=== PATIENT | male | born 1990 | race African-American/Black ===

== ENCOUNTER 2020-06-09 17:03 | Emergency (ER) | payer OTHER ==
[~2020-06-09] VITALS: Ht 177.8 cm; Wt 98.0 kg
[2020-06-09 17:04] VITALS: BP 164/75
[2020-06-09] MEDS ORDERED: IBUP200T45 PO (17:07)
[2020-06-09] MEDS ORDERED: KETOROLAC 30 MG/ML 1ML VIAL IM ONE (17:45)
[2020-06-09] MEDS ORDERED: KETO10TAB PO (17:47)
[2020-06-09] MEDS ORDERED: CYCL-707 PO (17:47)
== END 2020-06-09 17:56 | disposition home or self-care (01) ==
LOC: M ED 17:03
DX: M62.830 Muscle spasm of back (principal)
CPT/HCPCS: 96372; 99282; J1885

== ENCOUNTER 2020-11-24 12:03 | Emergency (ER) | payer OTHER ==
[~2020-11-24] VITALS: Ht 177.8 cm; Wt 83.0 kg
[2020-11-24 12:03] VITALS: BP 160/76
[~2020-11-24 12:03] MED LIST: CYCL-707 PO; IBUP200T45 PO; KETO10TAB PO
[2020-11-24] MEDS ORDERED: ACET-683 PO (12:19)
--- OUTSIDE RECORDS SUMMARY | 2020-11-24 13:50 | CCD ---
Author Author [facility] Organization [facility] Address Unknown Phone Unavailable Support Name Relationship Address Phone [facility] Next Of Kin [address] [place] [address] Unavailable Re-disclosure Warning The records that you are about to access may contain information from federally-assisted alcohol or drug abuse programs. If such information is present, then the following federally mandated warning applies: This information has been disclosed to you from records protected by federal confidentiality rules (42 CFR part 2). The federal rules prohibit you from making any further disclosure of this information unless further disclosure is expressly permitted by the written consent of the person to whom it pertains or as otherwise permitted by 42 CFR part 2. A general authorization for the release of medical or other information is NOT sufficient for this purpose. The Federal rules restrict any use of the information to criminally investigate or prosecute any alcohol or drug abuse patient.The records that you are about to access may contain highly sensitive health information, the redisclosure of which is protected by Article 27-F of the [facility] Public Health law. If you continue you may have access to information: Regarding HIV / AIDS; Provided by facilities licensed or operated by the [facility] Office of Mental Health; or Provided by the [facility] Office for People With Developmental Disabilities. If such information is present, then the following [facility] mandated warning applies: This information has been disclosed to you from confidential records which are protected by state law. State law prohibits you from making any further disclosure of this information without the specific written consent of the person to whom it pertains, or as otherwise permitted by law. Any unauthorized further disclosure in violation of state law may result in a fine or mcfp sentence or both. A general authorization for the release of medical or other information is NOT sufficient authorization for further disc losure. Insurance Providers Payer name Policy type / Coverage type Policy ID Covered republican ID Covered republican's relationship to hassan Policy Hassan Plan Information [facility] ACTIVE DUTY [id number]
--- OUTSIDE RECORDS SUMMARY | 2020-11-24 13:57 | CCD ---
Author Author [facility] Organization [facility] Address Unknown Phone Unavailable Support Name Relationship Address Phone ADEEL YANG Next Of Kin [address] [address] [facility] Next [place] [address] Unavailable Re-disclosure Warning The records that you [...] is protected by Article 27-F of the [facility] Public Health law. If you continue you may have access to information: Regarding HIV / AIDS; Provided by facilities licensed or operated by the [facility] Office of Mental Health; or Provided by the [facility] Office for People With Developmental Disabilities. If such information is present, then the following [facility] mandated warning applies: This information has been [...] law may result in a fine or usp sentence or both. A general authorization for the release of medical or other information is NOT sufficient authorization for further disc losure. Insurance Providers Payer name Policy type / Coverage type Policy ID Covered constitution party ID Covered constitution party's relationship to haynes Policy Haynes Plan Information [facility] ACTIVE DUTY [id number]
== END 2020-11-24 12:52 | disposition home or self-care (01) ==
LOC: M ED 12:03
DX: G89.29 Other chronic pain (principal); M54.5 Low back pain; W01.0XXA Fall on same level from slipping, tripping and stumbling without subsequent striking against object, initial encounter; Y92.9 Unspecified place or not applicable; Y93.9 Activity, unspecified; Y99.9 Unspecified external cause status; M25.70 Osteophyte, unspecified joint; F17.200 Nicotine dependence, unspecified, uncomplicated